=== PATIENT | female | born 1960 | race Caucasian/White ===

== ENCOUNTER 2021-01-12 01:14 | Emergency (ER) | payer MEDICARE, MEDICAID ==
[~2021-01-12] VITALS: Ht 172.7 cm; Wt 100.0 kg
--- NOTE | 2021-01-12 01:33 | ED Abdominal Pain ---
General Stated Complaint: ABD PAIN Source of Information: Patient Exam Limitations: No Limitations History of Present Illness Date Seen by Provider: Jan 12, 2021 Time Seen by Provider: 01:18 Initial Comments Patient is a 60-year-old female who presents to the emergency department by ambulance this evening with a chief complaint of left upper quadrant abdominal pain. Patient [place] when she had a sudden onset of nausea and the pain along with diaphoresis shortness of breath and generally not feeling well. Patient states that she has had pain similar in the past when she is had ice cream. She states it has never been this bad however. Patient states she last ate at around 6:00 this evening and had Khmer food. Patient states that she has had a history of cholecystectomy hysterectomy and some orthopedic surgeries. She is "prediabetic" and takes medications for hypertension and hypercholesterolemia. She is also a smoker. Patient states the onset of pain was about 1230 this evening. She was given some Zofran per EMS prior to arrival. She rates her pain a "a 9". Patient has a notable rash to her bilateral lower extremities, this appears petechial in nature she states its been there for quite a while. At least a m ont. She last saw her primary care physician in [facility] a week ago. She lives in [place]. No sick contacts, no Covid concerns. All other review of systems reviewed and negative except as stated above. Timing/Duration: 1 Hour Severity/Quality: Severe, Aching Location: [facility] Radiation: No Radiation Activities at Onset: Activity Modifying Factors: Improves With Vomiting (Nausea and vomiting) Associated Symptoms: Nausea/Vomiting Allergies and Home Medications Allergies Coded Allergies: aspirin (Verified Allergy, Unknown, 01/12/21) codeine (Verified Allergy, Unknown, 01/12/21) promethazine (Verified Allergy, Unknown, 01/12/21) Uncoded Allergies: pcn (Allergy, Unknown, 01/12/21) Patient Home Medication List Home Medication List Reviewed: Yes Review of Systems Review of Systems Constitutional: see HPI EENTM: No Symptoms Reported Respiratory: Shortness of Air Cardiovascular: No Symptoms Reported Gastrointestinal: Abdominal Pain, Diarrhea (Loose stool this evening at around 730), Nausea, Vomiting Genitourinary: No Symptoms Reported; Denies Burning, Denies Frequency Musculoskeletal: no symptoms reported Skin: no symptoms reported All Other Systems Reviewed Negative Unless Noted: Yes Physical Exam Vital Signs Vital Signs - First Documented 01/12/21 01:14 Temp 36.3 Pulse 64 Resp 20 B/P (MAP) 119/74 (89) Pulse Ox 95 O2 Delivery Room Air Capillary Refill : Height/Weight/BMI Height: '" Weight: lbs. oz. kg; BMI Method: General Appearance: WD/WN, moderate distress Respiratory: lungs clear, normal breath sounds, no respiratory distress, no accessory muscle use Cardiovascular: regular rate, rhythm, other (Pedal edema) Gastrointestinal: normal bowel sounds, soft, tenderness (Mild tenderness in the left upper quadrant) Neurologic/Psychiatric: no motor/sensory deficits, alert, normal mood/affect, oriented x 3 Skin: normal color, warm/dry, rash (Patient has a petechial rash to the bilateral lower extremities) Progress/Results/Core Measures Results/Orders Lab Results Laboratory Tests Test 01/12/21 01:27 Range/Units White Blood Count 9.2 4.3-11.0 10^3/uL Red Blood Count 3.59 L 3.80-5.11 10^6/uL Hemoglobin 10.9 L 11.5-16.0 g/dL Hematocrit 34 L 35-52 % Mean Corpuscular Volume 95 80-99 fL Mean Corpuscular Hemoglobin 30 25-34 pg Mean Corpuscular Hemoglobin Concent 32 32-36 g/dL Red Cell Distribution Width 15.2 H 10.0-14.5 % Platelet Count 250 130-400 10^3/uL Mean Platelet Volume 10.1 9.0-12.2 fL Immature Granulocyte % (Auto) 0 % Neutrophils (%) (Auto) 62 42-75 % Lymphocytes (%) (Auto) 29 12-44 % Monocytes (%) (Auto) 6 0-12 % Eosinophils (%) (Auto) 2 0-10 % Basophils (%) (Auto) 0 0-10 % Neutrophils # (Auto) 5.7 1.8-7.8 10^3/uL Lymphocytes # (Auto) 2.7 1.0-4.0 10^3/uL Monocytes # (Auto) 0.6 0.0-1.0 10^3/uL Eosinophils # (Auto) 0.2 0.0-0.3 10^3/uL Basophils # (Auto) 0.0 0.0-0.1 10^3/uL Immature Granulocyte # (Auto) 0.0 0.0-0.1 10^3/uL Sodium Level 143 135-145 MMOL/L Potassium Level 2.9 L 3.6-5.0 MMOL/L Chloride Level 104 98-107 MMOL/L Carbon Dioxide Level 26 21-32 MMOL/L Anion Gap 13 5-14 MMOL/L Blood Urea Nitrogen 11 7-18 MG/DL Creatinine 0.82 0.60-1.30 MG/DL Estimat Glomerular Filtration Rate > 60 BUN/Creatinine Ratio 13 Glucose Level 113 H 70-105 MG/DL Calcium Level 8.7 8.5-10.1 MG/DL Corrected Calcium 8.7 8.5-10.1 MG/DL Total Bilirubin 0.3 0.1-1.0 MG/DL Aspartate Amino Transf (AST/SGOT) 17 5-34 U/L Alanine Aminotransferase (ALT/SGPT) 14 0-55 U/L Alkaline Phosphatase 67 40-136 U/L Total Creatine Kinase 47 29-168 U/L Creatine Kinase MB 0.3 <6.6 NG/ML Troponin I < 0.028 <0.028 NG/ML Total Protein 6.6 6.4-8.2 GM/DL Albumin 4.0 3.2-4.5 GM/DL Lipase 25 8-78 U/L My Orders Orders - YVETTE PÉREZ MD Ed Iv/Invasive Line Start (01/12/21:) Cbc With Automated Diff (01/12/21:) Comprehensive Metabolic Panel (01/12/21) Lipase (01/12/21:) Troponin I (01/12/21) Creatine Kinase (01/12/21) Creatine Kinase Mb (01/12/21) Ekg Tracing (01/12/21) Chest 1 View, Ap/Pa Only (01/12/21:) Vital Signs/I&O 01/12/21 01:14 Temp 36.3 Pulse 64 Resp 20 B/P (MAP) 119/74 (89) Pulse Ox 95 O2 Delivery Room Air Progress Progress Note : Time: 03:45 Progress Note Reevaluated patient. She is feeling much better. She is sitting up at the bedside with no nausea or pain at this time. I reviewed all of her labs and she is only pertinent for a potassium at 2.9. Patient states that she does take a diuretic with her lisinopril in combination. Patient denies any vomiting tonight but states she just had severe nausea with the left upper quadrant pain. Chemistry is otherwise unremarkable lipase is negative. Cardiac enzymes are negative. Chest X x-ray is reviewed and is within normal limits. EKG is reviewed and is within normal limits. Patient has no clinical or objective findings to warrant further testing from the emergency department. I have recommended that she call and follow-up with her primary care provider regarding her emergency department visit on Wednesday. She is sent home with a prescription for some Zofran. She is given good return precautions. She verbalizes understanding, all questions are sought and answered. Patient is stable for discharge. Initial ECG Impression Date: Jan 12, 2021 Initial ECG Impression Time: 01:29 Initial ECG Rate: 63 Initial ECG Rhythm: Normal Sinus Initial ECG Intervals: Normal Initial ECG Intervals HI 181 QRS 116 QTC 466 Initial ECG Impression: Normal Departure Impression Primary Impression: Abdominal pain Qualified Codes: R10.12 - Left upper quadrant pain Additional Impression: Hypokalemia Disposition: HOME, SELF-CARE Condition: Stable Departure-Patient Inst. Decision time for Depature: 03:47 Patient Instructions: Abdominal Pain, Adult ED Add. Discharge Instructions: Please call your primary care provider's office on Wednesday for a follow-up from your ER visit this evening. I have given you a prescription for Zofran, take this medication every 8 hours as needed for nausea. Continue your other home daily medications. You will need your potassium level rechecked within a week or so. Return to the emergency room for any return of severe abdominal pain especially associated with symptoms of fever vomiting or other emergent concerns. Scripts Ondansetron (Ondansetron Odt) 4 Mg Tab.rapdis 4 MG PO Q8H PRN for nausea, #15 TAB Prov: YVETTE PÉREZ MD 01/12/21 YVETTE PÉREZ MD Jan 12, 2021 01:33
[2021-01-12 01:36] LABS: BASOPHILS % (AUTO) 0 % (0-10); EOSINOPHILS # (AUTO) 0.2 10^3/uL (0.0-0.3); EOSINOPHILS % (AUTO) 2 % (0-10); HEMATOCRIT 34 % (35-52); HEMOGLOBIN 10.9 g/dL (11.5-16.0); LYMPHOCYTES # (AUTO) 2.7 10^3/uL (1.0-4.0); LYMPHOCYTES % (AUTO) 29 % (12-44); MEAN CORPUSCULAR HEMOGLOBIN 30 pg (25-34); MEAN CORPUSCULAR HGB CONC 32 g/dL (32-36); MEAN CORPUSCULAR VOLUME 95 fL (80-99); MEAN PLATELET VOLUME 10.1 fL (9.0-12.2); MONOCYTES # (AUTO) 0.6 10^3/uL (0.0-1.0); MONOCYTES % (AUTO) 6 % (0-12); NEUTROPHILS # (AUTO) 5.7 10^3/uL (1.8-7.8); NEUTROPHILS % (AUTO) 62 % (42-75); PLATELET COUNT 250 10^3/uL (130-400); WHITE BLOOD COUNT 9.2 10^3/uL (4.3-11.0)
[2021-01-12 01:47] LABS: CHLORIDE 104 MMOL/L (98-107); POTASSIUM 2.9 MMOL/L (3.6-5.0); SODIUM 143 MMOL/L (135-145)
[2021-01-12 01:48] LABS: CALCIUM 8.7 MG/DL (8.5-10.1)
[2021-01-12 01:49] LABS: GLUCOSE 113 MG/DL (70-105); TOTAL PROTEIN 6.6 GM/DL (6.4-8.2)
[2021-01-12 01:50] LABS: CARBON DIOXIDE 26 MMOL/L (21-32)
[2021-01-12 01:51] LABS: BILIRUBIN,TOTAL 0.3 MG/DL (0.1-1.0)
[2021-01-12 01:53] LABS: ALKALINE PHOSPHATASE 67 U/L (40-136); CREATININE SERUM 0.82 MG/DL (0.60-1.30); GFR ESTIMATED > 60
[2021-01-12 01:54] LABS: BUN/CREATININE RATIO 13
[2021-01-12 01:56] LABS: ALANINE AMINOTRANSFERASE 14 U/L (0-55); CREATINE KINASE 47 U/L (29-168); LIPASE 25 U/L (8-78)
[2021-01-12 02:02] LABS: CREATINE KINASE MB 0.3 NG/ML (<6.6)
[2021-01-12] MEDS ORDERED: RX-ONDANSETRON 4 MG ODT (ZOFRAN) PPK #4 PO STA (03:43)
[2021-01-12] MEDS ORDERED: ONDA4TAB11 PO (03:48)
[2021-01-12] MEDS ORDERED: KCL 20 MEQ TAB (K-DUR) PO ONE (04:00)
[2021-01-12 04:16] VITALS: BP 122/76
--- NOTE | 2021-01-12 07:02 | Diagnostic Imaging Report ---
Clinical indications: Patient with left upper quadrant pain, nausea, shortness of breath and sweating. Exam: Portable chest x-ray upright view. Comparisons: Chest x-ray dated 12/07/2019. Findings: Lungs/pleura: Lungs are clear. There is no pneumothorax. There is no pleural effusion. Mediastinum: Unremarkable. Pulmonary vasculature: Unremarkable. Heart: Unremarkable. Bones/extrathoracic soft tissue: Unremarkable. Impression: There is no radiographic evidence of acute cardiopulmonary process. Dictated by: Dictated on workstation # [id number]
== END 2021-01-12 04:16 | disposition home or self-care (01) ==
LOC: ER 01:17
DX: R10.12 Left upper quadrant pain (principal); E87.6 Hypokalemia; I10 Essential (primary) hypertension; E78.00 Pure hypercholesterolemia, unspecified; F17.200 Nicotine dependence, unspecified, uncomplicated; Z90.49 Acquired absence of other specified parts of digestive tract
CPT/HCPCS: 36415; 71045; 80053; 82550; 82553; 83690; 84484; 85025; 93005